=== PATIENT | male | born 1955 | race Caucasian/White ===

== ENCOUNTER 2023-12-20 20:52 | Observation (INO) | payer MEDICARE ==
[~2023-12-20] VITALS: Ht 172.7 cm; Wt 54.4 kg
[2023-12-20 21:52] LABS: BASOPHILS ABSOLUTE AUTO 0.05 K/mm3 (0.00-0.23); BASOPHILS PERCENT AUTO 1 % (0-2); EOSINOPHILS ABSOLUTE AUTO 0.07 K/mm3 (0.00-0.68); EOSINOPHILS PERCENT AUTO 1 % (0-6); Hematocrit 40.1 % (37.0-53.0); Hemoglobin 13.8 g/dL (13.5-17.5); IMMATURE GRAN ABSOLUTE AUTO 0.02 K/mm3 (0.00-0.10); IMMATURE GRAN PERCENT AUTO 0 % (0-1); LYMPHOCYTES ABSOLUTE AUTO 1.13 K/mm3 (0.84-5.20); LYMPHOCYTES PERCENT AUTO 11 % (21-46); MONOCYTES ABSOLUTE AUTO 0.57 K/mm3 (0.16-1.47); MONOCYTES PERCENT AUTO 6 % (4-13); Mean Corpuscular HGB 30.1 pg (26.0-34.0); Mean Corpuscular HGB Conc 34.4 g/dL (31.5-36.5); Mean Corpuscular Volume 88 fL (80-100); Mean Platelet Volume 9.2 fL (9.1-12.4); NEUTROPHILS ABSOLUTE AUTO 8.47 K/mm3 (1.96-9.15); NEUTROPHILS PERCENT AUTO 82 % (41-73); Platelet Count 291 K/mm3 (150-400); RDW Coefficient Variation 13.5 % (11.7-14.2); RDW Standard Deviation 43.5 fL (35.1-46.3); Red Blood Cell Count 4.58 M/mm3 (4.30-5.90); White Blood Cell Count 10.31 K/mm3 (4.00-11.30)
[2023-12-20 22:21] LABS: Albumin, Blood 3.6 g/dL (3.4-5.0); Albumin/Globulin Ratio 0.9 (0.8-1.8); Bilirubin, Total 0.5 mg/dL (0.1-1.0); Bun/Creatinine Ratio 18.4 (12.0-20.0); Calcium, Blood 9.3 mg/dL (8.5-10.1); Creatinine, Blood 0.87 mg/dL (0.60-1.20); Potassium, Blood 3.9 mmol/L (3.5-5.5); Total Protein, Blood 7.6 g/dL (6.4-8.2)
[2023-12-20] MEDS ORDERED: NS 1,000 ML IV SCH (23:15)
[2023-12-20] MEDS ORDERED: Metoclopramide HCl 5MG / ML 2ML Vial IV ONE (23:25)
[2023-12-20] MEDS ORDERED: Morphine Sulfate 4 MG/1 ML Injection IV ONE (23:25)
[2023-12-21] MEDS ORDERED: Ondansetron HCl 2 MG / ML 2ML Vial IV PRN (02:30)
[2023-12-21] MEDS ORDERED: FentaNYL Citrate 50 MCG/ML 2 ML Injection IV PRN (02:30)
[2023-12-21] MEDS ORDERED: Pantoprazole Sodium 40 MG Injection IV SCH (02:40)
[2023-12-21 03:48] VITALS: BP 169/91
[2023-12-21] MEDS ORDERED: NS 1,000 ML IV SCH (04:00)
[2023-12-21 04:54] LABS: BASOPHILS ABSOLUTE AUTO 0.05 K/mm3 (0.00-0.23); BASOPHILS PERCENT AUTO 1 % (0-2); EOSINOPHILS ABSOLUTE AUTO 0.06 K/mm3 (0.00-0.68); EOSINOPHILS PERCENT AUTO 1 % (0-6); Hematocrit 39.8 % (37.0-53.0); Hemoglobin 13.3 g/dL (13.5-17.5); IMMATURE GRAN ABSOLUTE AUTO 0.03 K/mm3 (0.00-0.10); IMMATURE GRAN PERCENT AUTO 0 % (0-1); LYMPHOCYTES ABSOLUTE AUTO 1.49 K/mm3 (0.84-5.20); LYMPHOCYTES PERCENT AUTO 17 % (21-46); MONOCYTES ABSOLUTE AUTO 0.53 K/mm3 (0.16-1.47); MONOCYTES PERCENT AUTO 6 % (4-13); Mean Corpuscular HGB 29.8 pg (26.0-34.0); Mean Corpuscular HGB Conc 33.4 g/dL (31.5-36.5); Mean Corpuscular Volume 89 fL (80-100); Mean Platelet Volume 9.4 fL (9.1-12.4); NEUTROPHILS ABSOLUTE AUTO 6.56 K/mm3 (1.96-9.15); NEUTROPHILS PERCENT AUTO 75 % (41-73); Platelet Count 309 K/mm3 (150-400); RDW Coefficient Variation 13.5 % (11.7-14.2); RDW Standard Deviation 44.3 fL (35.1-46.3); Red Blood Cell Count 4.46 M/mm3 (4.30-5.90); White Blood Cell Count 8.72 K/mm3 (4.00-11.30)
[2023-12-21] MEDS ORDERED: CLOP75 PO (05:03)
[2023-12-21] MEDS ORDERED: AMLO5 PO (05:03)
[2023-12-21] MEDS ORDERED: ATOR40TA PO (05:04)
[2023-12-21] MEDS ORDERED: LOSA50 PO (05:04)
[2023-12-21] MEDS ORDERED: METO25ER PO (05:04)
[2023-12-21 05:37] LABS: Albumin, Blood 3.7 g/dL (3.4-5.0); Albumin/Globulin Ratio 0.9 (0.8-1.8); Bilirubin, Total 0.6 mg/dL (0.1-1.0); Bun/Creatinine Ratio 14.3 (12.0-20.0); Calcium, Blood 9.3 mg/dL (8.5-10.1); Creatinine, Blood 0.77 mg/dL (0.60-1.20); Globulin, Blood 4.1 g/dL (2.2-4.0); Potassium, Blood 4.1 mmol/L (3.5-5.5); Total Protein, Blood 7.8 g/dL (6.4-8.2)
[2023-12-21 07:43] VITALS: BP 168/74
[2023-12-21] MEDS ORDERED: Enoxaparin 40 MG/0.4 ML SYR SC SCH (09:00)
--- NOTE | 2023-12-21 14:54 | NUR ---
SHIFT SUMMARY PT RESTING QUIETLY AT START OF SHIFT. WOKE EASILY FOR CARE. PT BECOMING AGITATED AND CONFUSED, SETTING OFF BED ALARM WANTING TO WALK AROUND. PT LATER USING URINAL WITH ASSIST BY BUSINESS DEVELOPMENT DIRECTOR. DR WALLS HERE TO SEE PT; DIET ADVANCED TO CL AND LATER ADVANCE NEO. PT REQUESTED AND DRINKING JUICE; NOW EATING YOGURT AND TOLERATING WELL. IMAGING HERE TO TAKE PT FOR SCAN. PT VERY AGITATED AND WANTING OOB TO WALK TO BTHRM. PT GIVEN HIS CANE AND SBA TO BTHRM TO VOID. PT NOW SL. DENIES FURTHER NEEDS. REMAINS SOMEWHAT CONFUSED. BED ALARM ON FOR SAFETY. CALL LT IN REACH.
[2023-12-21 16:52] VITALS: BP 190/86
[2023-12-21] MEDS ORDERED: Metoprolol Succinate 25 MG TABCR PO SCH (18:00)
[2023-12-21 20:29] VITALS: BP 161/84
[2023-12-21] MEDS ORDERED: Atorvastatin 40 MG Tab PO SCH (21:00)
[2023-12-21] MEDS ORDERED: Losartan Potassium 50 MG Tab PO SCH (21:00)
[2023-12-21 23:29] VITALS: BP 157/95
[2023-12-22] MEDS ORDERED: HYDROcodone 5-APAP 325 TAB PO PRN (05:25)
--- NOTE | 2023-12-22 05:59 | NUR ---
SHIFT SUMMARY: PATIENT IS A&O TO SELF AND PLACE AT START OF SHIT BUT WOKE CONFUSED. PATIENT WAS DIFFICULT TO REDIRECT BACK TO HIS ROOM. STAFF ATTEMPTED MULTIPLE TIMES TO GET PATIENT INTO THE BATHROOM TO VOID AND CHANGE SOILED BRIEF AND PANTS. THIS WAS FINALLY ACCOMPLISHED. PATIENT THEN REPORTED ABD. PAIN 5/10 BUT WAS REFUSING ANY IV MEDICATION, PAIN MEDS OR SCHEDULED PROTONIX. DR BOWERS WAS NOTIFIED AND ORDERS WERE OBTAINED FOR ORAL PROTONIX AND NORCO. PATIENT DID TAKE THE PROTONIX BUT CONTINUES TO REFUSE ANY PAIN MEDS. BED ALARM IS ON FOR SAFETY.
[2023-12-22] MEDS ORDERED: Pantoprazole Sodium 40 MG Tab PO SCH (06:00)
[2023-12-22 07:54] VITALS: BP 179/92
[2023-12-22] MEDS ORDERED: Clopidogrel Bisulfate 75 MG Tab PO SCH (09:00)
[2023-12-22] MEDS ORDERED: AmLODIPine Besylate 5 MG Tab PO SCH (09:00)
[2023-12-22] MEDS ORDERED: PANT40 PO (11:36)
--- NOTE | 2023-12-22 13:18 | NUR ---
PT AWAKE AT START OF SHIFT, DURING SHIFT REPORT. NO C/O. PT ABLE TO SIT UP TO EOB AND EAT BREAKFAST. DIET ADVANCED AGAIN PER ORDERS, PT TOLERATING WELL. DR WALLS IN TO SEE PT AND DISCUSS PLAN OF CARE. PT ABLE TO D/C TODAY. MEDS FAXED TO [facility], PER PT; REQUEST. PT ALSO REQUESTING [facility] AT D/[facility]. FINANCE ANALYST ABLE TO ARRANGE. D/C INSTUCTIONS REVIEWED WTIH PT; VERBALIZED UNDERSTANDING. IV SITE AND TELE MX D/C'D. PT ASSISTED WITH GATHERING ALL BELONGINGS. PT THEN ASSISTED OUT TO [facility] VIA W/C.
== END 2023-12-22 12:03 | disposition home or self-care (01) ==
LOC: ER 20:52 → MEDS 20:53
PROVIDERS: Student in an Organized Health Care Education/Training Program; ADMIT Internal Medicine
DX: R74.8 Abnormal levels of other serum enzymes (principal); K86.89 Other specified diseases of pancreas; R53.1 Weakness; K21.9 Gastro-esophageal reflux disease without esophagitis; I10 Essential (primary) hypertension; E78.5 Hyperlipidemia, unspecified
CPT/HCPCS: 36415; 74177; 74181; 80053; 82272; 83690; 83880; 85025; 96361; 96374-59; 96375; 97116; 97161; 97165; 97530; 99285-25; A9270; C9113; G0378; J2270; J2765; J7030; Q9967

== ENCOUNTER 2025-03-07 11:56 | Emergency (ER) | payer MEDICARE, OTHER ==
[~2025-03-07] VITALS: Ht 175.3 cm; Wt 65.8 kg
[~2025-03-07 11:56] MED LIST: AMLO5 PO; ATOR40TA PO; B-1100 M1 PO; CLOP75 PO; DOCU100 PO; LOSA50 PO; METO25ER PO; MULVITA PO; PANT40 PO
[2025-03-07 12:39] LABS: BASOPHILS ABSOLUTE AUTO 0.04 K/mm3 (0.00-0.23); BASOPHILS PERCENT AUTO 1 % (0-2); EOSINOPHILS ABSOLUTE AUTO 0.20 K/mm3 (0.00-0.68); EOSINOPHILS PERCENT AUTO 3 % (0-6); Hematocrit 36.4 % (37.0-53.0); Hemoglobin 12.5 g/dL (13.5-17.5); IMMATURE GRAN ABSOLUTE AUTO 0.01 K/mm3 (0.00-0.10); IMMATURE GRAN PERCENT AUTO 0 % (0-1); LYMPHOCYTES ABSOLUTE AUTO 1.23 K/mm3 (0.84-5.20); LYMPHOCYTES PERCENT AUTO 18 % (21-46); MONOCYTES ABSOLUTE AUTO 0.33 K/mm3 (0.16-1.47); MONOCYTES PERCENT AUTO 5 % (4-13); Mean Corpuscular HGB Conc 34.3 g/dL (31.5-36.5); Mean Corpuscular Volume 91 fL (80-100); NEUTROPHILS ABSOLUTE AUTO 5.00 K/mm3 (1.96-9.15); NEUTROPHILS PERCENT AUTO 74 % (41-73); NRBC ABSOLUTE 0.00 K/mm3 (0.00-0.02); NRBC Auto 0.0 /100 WBC (0.0-0.2); Platelet Count 243 K/mm3 (150-400); RDW Coefficient Variation 13.2 % (11.7-14.2); RDW Standard Deviation 43.2 fL (35.1-46.3)
[2025-03-07 13:03] LABS: Alanine Aminotransfer (ALT/SGP 24.0 U/L (12-78); Albumin, Blood 3.6 g/dL (3.4-5.0); Albumin/Globulin Ratio 1.1 (0.8-1.8); Anion Gap 9.0 mmol/L (3-11); Aspartate Aminotrans (AST/SGOT 11.0 U/L (12-37); Bilirubin, Total 0.5 mg/dL (0.1-1.0); Blood Urea Nitrogen 15.0 mg/dL (8-24); CO2, Blood 28.0 mmol/L (21-32); Calcium, Blood 9.5 mg/dL (8.5-10.1); Chloride, Blood 109.0 mmol/L (98-108); Creatinine, Blood 0.97 mg/dL (0.60-1.20); Globulin, Blood 3.2 g/dL (2.2-4.0); Glucose, Blood 121.0 mg/dL (70-99); Potassium, Blood 3.5 mmol/L (3.5-5.5); Sodium, Blood 142.0 mmol/L (136-145); Total Protein, Blood 6.8 g/dL (6.4-8.2)
[2025-03-07] MEDS ORDERED: TRAZ50 PO (16:04)
[2025-03-07] MEDS ORDERED: METF500 (16:04)
[2025-03-07] MEDS ORDERED: OLAN10 PO (16:04)
[2025-03-07] MEDS ORDERED: NS 1,000 ML IV SCH (17:05)
[2025-03-07 19:19] LABS: Source, Urine Voided
[2025-03-07 19:23] LABS: Bilirubin, Urine Neg (Neg); Color, Urine Yellow (P-Yellow); Glucose Qualitative, Urine Neg (Neg); Ketones, Urine Neg (Neg); Leukocyte Esterase, Urine Neg (Neg); Protein, Urine 1+ (Neg); Specific Gravity, Urine 1.025 (1.003-1.022); Urobilinogen, Urine NORM (Normal)
== END 2025-03-07 21:08 | disposition home or self-care (01) ==
LOC: ER 11:56
PROVIDERS: Emergency Medicine
DX: S01.112A Laceration without foreign body of left eyelid and periocular area, initial encounter (principal); I10 Essential (primary) hypertension; E78.5 Hyperlipidemia, unspecified; I69.351 Hemiplegia and hemiparesis following cerebral infarction affecting right dominant side; K21.9 Gastro-esophageal reflux disease without esophagitis; Z79.02 Long term (current) use of antithrombotics/antiplatelets; Z79.899 Other long term (current) drug therapy; W18.30XA Fall on same level, unspecified, initial encounter
CPT/HCPCS: 70450; 72125; 80053; 85025; 93005; 93010; 96360; 99285-25; J7030

== ENCOUNTER 2025-03-13 13:32 | Emergency (ER) | payer MEDICARE, OTHER ==
[~2025-03-13] VITALS: Ht 182.9 cm; Wt 54.5 kg
[~2025-03-13 13:32] MED LIST changes: +METF500; +OLAN10 PO; +TRAZ50 PO
[2025-03-13 14:48] LABS: BASOPHILS ABSOLUTE AUTO 0.04 K/mm3 (0.00-0.23); BASOPHILS PERCENT AUTO 0 % (0-2); EOSINOPHILS ABSOLUTE AUTO 0.23 K/mm3 (0.00-0.68); EOSINOPHILS PERCENT AUTO 2 % (0-6); Hematocrit 37.8 % (37.0-53.0); Hemoglobin 13.1 g/dL (13.5-17.5); IMMATURE GRAN ABSOLUTE AUTO 0.04 K/mm3 (0.00-0.10); IMMATURE GRAN PERCENT AUTO 0 % (0-1); LYMPHOCYTES ABSOLUTE AUTO 1.08 K/mm3 (0.84-5.20); LYMPHOCYTES PERCENT AUTO 8 % (21-46); MONOCYTES ABSOLUTE AUTO 0.69 K/mm3 (0.16-1.47); MONOCYTES PERCENT AUTO 5 % (4-13); Mean Corpuscular HGB Conc 34.7 g/dL (31.5-36.5); Mean Corpuscular Volume 90 fL (80-100); NEUTROPHILS ABSOLUTE AUTO 11.69 K/mm3 (1.96-9.15); NEUTROPHILS PERCENT AUTO 85 % (41-73); NRBC ABSOLUTE 0.00 K/mm3 (0.00-0.02); NRBC Auto 0.0 /100 WBC (0.0-0.2); Platelet Count 240 K/mm3 (150-400); RDW Coefficient Variation 13.4 % (11.7-14.2); RDW Standard Deviation 44.0 fL (35.1-46.3)
[2025-03-13 15:03] LABS: Prothrombin Time Results 10.9 Sec (9.7-11.5)
[2025-03-13 15:50] LABS: Source, Urine Clean Catch
[2025-03-13 15:54] LABS: Bilirubin, Urine Neg (Neg); Color, Urine Yellow (P-Yellow); Glucose Qualitative, Urine Neg (Neg); Ketones, Urine Neg (Neg); Leukocyte Esterase, Urine 2+ (Neg); Protein, Urine 2+ (Neg); Specific Gravity, Urine 1.015 (1.003-1.022); Urobilinogen, Urine NORM (Normal)
[2025-03-13 16:04] LABS: Red Blood Cells, Urine TNTC /hpf (0-2); White Blood Cells, Urine 25-50 /hpf (0-5)
[2025-03-13 16:05] LABS: Magnesium, Blood 2.1 mg/dL (1.6-2.4)
[2025-03-13 16:06] LABS: Alanine Aminotransfer (ALT/SGP 25.0 U/L (12-78); Albumin, Blood 3.8 g/dL (3.4-5.0); Albumin/Globulin Ratio 1.1 (0.8-1.8); Anion Gap 9.0 mmol/L (3-11); Aspartate Aminotrans (AST/SGOT 17.0 U/L (12-37); Bilirubin, Total 0.7 mg/dL (0.1-1.0); Blood Urea Nitrogen 11.0 mg/dL (8-24); CO2, Blood 28.0 mmol/L (21-32); Calcium, Blood 9.4 mg/dL (8.5-10.1); Chloride, Blood 106.0 mmol/L (98-108); Creatinine, Blood 0.67 mg/dL (0.60-1.20); Globulin, Blood 3.6 g/dL (2.2-4.0); Glucose, Blood 116.0 mg/dL (70-99); Potassium, Blood 3.6 mmol/L (3.5-5.5); Sodium, Blood 139.0 mmol/L (136-145); Total Protein, Blood 7.4 g/dL (6.4-8.2)
[2025-03-13] MEDS ORDERED: CEFP200 PO (16:48)
== END 2025-03-13 17:54 | disposition home or self-care (01) ==
LOC: ER 13:32
PROVIDERS: Emergency Medicine
DX: N39.0 Urinary tract infection, site not specified (principal); I10 Essential (primary) hypertension; K21.9 Gastro-esophageal reflux disease without esophagitis; E78.5 Hyperlipidemia, unspecified; Z79.84 Long term (current) use of oral hypoglycemic drugs; Z79.899 Other long term (current) drug therapy
CPT/HCPCS: 74177; 80053; 81001; 83690; 83735; 85025; 85610; 85730; 99284-25; A9270; Q9967

== ENCOUNTER 2025-03-23 12:40 | Inpatient (IN) | payer OTHER ==
[~2025-03-23] VITALS: Ht 165.1 cm; Wt 65.8 kg
[~2025-03-23 12:40] MED LIST changes: +CEFP200 PO
[2025-03-23] MEDS ORDERED: FentaNYL Citrate 50 MCG/ML 2 ML Injection IV PRN (13:05)
[2025-03-23 13:37] LABS: BASOPHILS ABSOLUTE AUTO 0.05 K/mm3 (0.00-0.23); BASOPHILS PERCENT AUTO 0 % (0-2); EOSINOPHILS ABSOLUTE AUTO 0.04 K/mm3 (0.00-0.68); EOSINOPHILS PERCENT AUTO 0 % (0-6); Hematocrit 37.9 % (37.0-53.0); Hemoglobin 12.8 g/dL (13.5-17.5); IMMATURE GRAN ABSOLUTE AUTO 0.09 K/mm3 (0.00-0.10); IMMATURE GRAN PERCENT AUTO 1 % (0-1); LYMPHOCYTES ABSOLUTE AUTO 0.75 K/mm3 (0.84-5.20); LYMPHOCYTES PERCENT AUTO 5 % (21-46); MONOCYTES ABSOLUTE AUTO 0.71 K/mm3 (0.16-1.47); MONOCYTES PERCENT AUTO 4 % (4-13); Mean Corpuscular HGB Conc 33.8 g/dL (31.5-36.5); Mean Corpuscular Volume 92 fL (80-100); NEUTROPHILS ABSOLUTE AUTO 14.81 K/mm3 (1.96-9.15); NEUTROPHILS PERCENT AUTO 90 % (41-73); NRBC ABSOLUTE 0.00 K/mm3 (0.00-0.02); NRBC Auto 0.0 /100 WBC (0.0-0.2); Platelet Count 289 K/mm3 (150-400); RDW Coefficient Variation 13.3 % (11.7-14.2); RDW Standard Deviation 44.9 fL (35.1-46.3)
[2025-03-23 13:52] LABS: Prothrombin Time Results 11.5 Sec (9.7-11.5)
[2025-03-23 14:03] LABS: Alanine Aminotransfer (ALT/SGP 45.0 U/L (12-78); Albumin, Blood 3.8 g/dL (3.4-5.0); Albumin/Globulin Ratio 1.1 (0.8-1.8); Anion Gap 8.0 mmol/L (3-11); Aspartate Aminotrans (AST/SGOT 29.0 U/L (12-37); Bilirubin, Total 0.5 mg/dL (0.1-1.0); Blood Urea Nitrogen 14.0 mg/dL (8-24); CO2, Blood 27.0 mmol/L (21-32); Calcium, Blood 9.2 mg/dL (8.5-10.1); Chloride, Blood 108.0 mmol/L (98-108); Creatinine, Blood 0.67 mg/dL (0.60-1.20); Globulin, Blood 3.5 g/dL (2.2-4.0); Glucose, Blood 152.0 mg/dL (70-99); Potassium, Blood 3.8 mmol/L (3.5-5.5); Sodium, Blood 139.0 mmol/L (136-145); Total Protein, Blood 7.3 g/dL (6.4-8.2)
[2025-03-23] MEDS ORDERED: HYDROmorphone HCl/Pf 1MG SYR IV PRN ×2 (14:40→16:00)
[2025-03-23 15:56] VITALS: BP 154/75
--- NOTE | 2025-03-23 16:07 | NUR ---
PT TO ROOM 214 FROM ED. GUARDING L LEG/HIP. PT NON VERBAL. LIVES IN [facility]. FISSURE THAT APPEARS TO BE HEALING NOTED IN GLUTEAL CLEFT. PT PLACED ON Q2 TURN SCHEDULE. WILL CONTINUE TO MONITOR.
--- NOTE | 2025-03-23 17:42 | NUR ---
"Spiritual care Visit | Pt. Request Pt. is awake in bed when he welcomes my visit. Pt. is pleasant, but is a man of few words. Attempted to facilitate a life review. Pt. was very limited in his response but did verbally confirm that he was in the hospital because of a broken hip. Pts. ASPH[employer] ROLLER PERSON brought pt. his dinner, and the Pt. became focused upon his food. Pt. welcomed prayer. Prayed for Pt. Afterward Pt. nonverbally (with a nod) agreed to have this airport shuttle driver return tomorrow."
[2025-03-23 19:53] VITALS: BP 124/64
[2025-03-24] VITALS (16 sets, daily range): BP systolic 121–159; BP diastolic 56–107
[2025-03-24 03:54] LABS: BASOPHILS ABSOLUTE AUTO 0.03 K/mm3 (0.00-0.23); BASOPHILS PERCENT AUTO 0 % (0-2); EOSINOPHILS ABSOLUTE AUTO 0.23 K/mm3 (0.00-0.68); EOSINOPHILS PERCENT AUTO 2 % (0-6); Hematocrit 33.6 % (37.0-53.0); Hemoglobin 11.2 g/dL (13.5-17.5); IMMATURE GRAN ABSOLUTE AUTO 0.03 K/mm3 (0.00-0.10); IMMATURE GRAN PERCENT AUTO 0 % (0-1); LYMPHOCYTES ABSOLUTE AUTO 1.52 K/mm3 (0.84-5.20); LYMPHOCYTES PERCENT AUTO 16 % (21-46); MONOCYTES ABSOLUTE AUTO 0.53 K/mm3 (0.16-1.47); MONOCYTES PERCENT AUTO 6 % (4-13); Mean Corpuscular HGB Conc 33.3 g/dL (31.5-36.5); Mean Corpuscular Volume 93 fL (80-100); NEUTROPHILS ABSOLUTE AUTO 7.24 K/mm3 (1.96-9.15); NEUTROPHILS PERCENT AUTO 76 % (41-73); NRBC ABSOLUTE 0.00 K/mm3 (0.00-0.02); NRBC Auto 0.0 /100 WBC (0.0-0.2); Platelet Count 253 K/mm3 (150-400); RDW Coefficient Variation 13.5 % (11.7-14.2); RDW Standard Deviation 45.6 fL (35.1-46.3)
[2025-03-24 04:18] LABS: Alanine Aminotransfer (ALT/SGP 33.0 U/L (12-78); Albumin, Blood 3.2 g/dL (3.4-5.0); Albumin/Globulin Ratio 1.0 (0.8-1.8); Anion Gap 6.0 mmol/L (3-11); Aspartate Aminotrans (AST/SGOT 15.0 U/L (12-37); Bilirubin, Total 0.6 mg/dL (0.1-1.0); Blood Urea Nitrogen 16.0 mg/dL (8-24); CO2, Blood 30.0 mmol/L (21-32); Calcium, Blood 9.0 mg/dL (8.5-10.1); Chloride, Blood 108.0 mmol/L (98-108); Creatinine, Blood 0.72 mg/dL (0.60-1.20); Globulin, Blood 3.3 g/dL (2.2-4.0); Glucose, Blood 123.0 mg/dL (70-99); Potassium, Blood 3.8 mmol/L (3.5-5.5); Sodium, Blood 140.0 mmol/L (136-145); Total Protein, Blood 6.5 g/dL (6.4-8.2)
--- NOTE | 2025-03-24 05:29 | NUR ---
RAG WILLOW OPERATOR SUMMARY NO ACUTE CHANGES THIS SHIFT. PT AAOX2-3, VERY SOFT SPOKEN AND MINIMALLY VERBAL BUT DOES ANSWER QUESTIONS APPROPRIATELY FOR THE MOST PART. NPO SINCE MIDNIGHT FOR L HIP SURGERY LATER TODAY. PAIN HAS BEEN CONTROLLED WITH OXYCODONE. PT HAS BEEN ABLE TO SLEEP OFF AND ON THROUGH THE NIGHT. PT INCONTINENT SO PUREWICK EXTERNAL CATHETER PLACED. PRE OP [place] COMPLETED. VSS, WCTM.
[2025-03-24] MEDS ORDERED: FentaNYL Citrate 50 MCG/ML 2 ML Injection ONE (13:15)
[2025-03-24] MEDS ORDERED: Rocuronium Bromide 10 MG/ML 5ML Injection IV ONE (13:15)
[2025-03-24] MEDS ORDERED: CeFAZolin Sodium 2,000 MG in NS 100 ML IV SCH ×2 (14:00→23:00)
[2025-03-24] MEDS ORDERED: CeFAZolin Sodium 2,000 MG VIAL ONE (14:01)
[2025-03-24] MEDS ORDERED: Tranexamic Acid 100 ML IV ONE ×3 (14:40→17:55)
[2025-03-24] MEDS ORDERED: HYDROmorphone HCl/Pf 1MG SYR IV PRN ×2 (15:05→15:10)
[2025-03-24] MEDS ORDERED: Metoclopramide HCl 5MG / ML 2ML Vial IV PRN (15:05)
[2025-03-24] MEDS ORDERED: FentaNYL Citrate 50 MCG/ML 2 ML Injection IV PRN ×2 (15:05)
[2025-03-24] MEDS ORDERED: Albuterol 2.5 MG/3 ML VIAL INH PRN (15:05)
[2025-03-24] MEDS ORDERED: Bupivacaine 0.5% W/EPI 1:200000 SDV 30 ML Vial ONE (15:33)
[2025-03-24] MEDS ORDERED: Sugammadex Sodium 200 MG/2ML SDV (100 MG/ML) ONE (15:51)
[2025-03-24] MEDS ORDERED: NS 250 ML IV PRN (18:05)
--- NOTE | 2025-03-24 18:30 | NUR ---
SHIFT SUMMARY PATIENT ALERT AND INTERACTIVE BUT FLAT AND SOFT SPOKEN PRIOR TO SURGERY. PATIENT MEDICATED FOR PAIN PER MAR. PATIENT TAKEN DOWN TO DAY SURGERY BY BED ABOUT 1330. PATIENT RETURNED TO ROOM POST OP AWAKE AND IN PAIN. PATIENT MEDICATED WITH DILAUDID FOR PAIN CONTROL WITH SOME RELIEF. PATIENT MORE INTERACTIVE WNEN PAIN IMPROVED. PATIENT CURRENTLY ON 4L NC POST OP. PATINET ON RA PRIOR TO SURGERY. SURGICAL INCISION COVERED WITH DRESSING. NO DRAINAGE NOTED AT THIS TIME. PATIENT CONTINUES TO HAVE PAIN ESPECIALLY WITH TURNING.
[2025-03-25 04:41] LABS: BASOPHILS ABSOLUTE AUTO 0.03 K/mm3 (0.00-0.23); BASOPHILS PERCENT AUTO 0 % (0-2); EOSINOPHILS ABSOLUTE AUTO 0.01 K/mm3 (0.00-0.68); EOSINOPHILS PERCENT AUTO 0 % (0-6); Hematocrit 30.7 % (37.0-53.0); Hemoglobin 10.4 g/dL (13.5-17.5); IMMATURE GRAN ABSOLUTE AUTO 0.03 K/mm3 (0.00-0.10); IMMATURE GRAN PERCENT AUTO 0 % (0-1); LYMPHOCYTES ABSOLUTE AUTO 0.59 K/mm3 (0.84-5.20); LYMPHOCYTES PERCENT AUTO 5 % (21-46); MONOCYTES ABSOLUTE AUTO 0.58 K/mm3 (0.16-1.47); MONOCYTES PERCENT AUTO 5 % (4-13); Mean Corpuscular HGB Conc 33.9 g/dL (31.5-36.5); Mean Corpuscular Volume 92 fL (80-100); NEUTROPHILS ABSOLUTE AUTO 11.26 K/mm3 (1.96-9.15); NEUTROPHILS PERCENT AUTO 90 % (41-73); NRBC ABSOLUTE 0.00 K/mm3 (0.00-0.02); NRBC Auto 0.0 /100 WBC (0.0-0.2); Platelet Count 254 K/mm3 (150-400); RDW Coefficient Variation 13.4 % (11.7-14.2); RDW Standard Deviation 44.9 fL (35.1-46.3)
[2025-03-25 04:49] VITALS: BP 149/76
[2025-03-25 05:04] LABS: Alanine Aminotransfer (ALT/SGP 27.0 U/L (12-78); Albumin, Blood 2.9 g/dL (3.4-5.0); Albumin/Globulin Ratio 0.9 (0.8-1.8); Anion Gap 7.0 mmol/L (3-11); Aspartate Aminotrans (AST/SGOT 16.0 U/L (12-37); Bilirubin, Total 0.4 mg/dL (0.1-1.0); Blood Urea Nitrogen 18.0 mg/dL (8-24); CO2, Blood 29.0 mmol/L (21-32); Calcium, Blood 9.0 mg/dL (8.5-10.1); Chloride, Blood 106.0 mmol/L (98-108); Creatinine, Blood 0.84 mg/dL (0.60-1.20); Globulin, Blood 3.1 g/dL (2.2-4.0); Glucose, Blood 158.0 mg/dL (70-99); Potassium, Blood 4.6 mmol/L (3.5-5.5); Sodium, Blood 137.0 mmol/L (136-145); Total Protein, Blood 6.0 g/dL (6.4-8.2)
--- NOTE | 2025-03-25 06:21 | NUR ---
SHIFT SUMMARY SOFT SPOKEN WITH FEW WORDS, BUT A&O. MEDICATED FOR PAIN WITH DILAUDID AND OXYCODONE PER EMAR. DRESSING TO LEFT HIP C/D/I. TURNED AND REPOSITIONED DURING THE NIGHT. PT INCONT OF URINE- ATTENDS CHANGED PRN. PT SLEPT INTERMITTENTLY DURING THE NIGHT.
[2025-03-25 07:09] VITALS: BP 118/66
[2025-03-25 14:50] VITALS: BP 123/59
--- NOTE | 2025-03-25 17:19 | NUR ---
SHIFT SUMMARY: PATIENT MEDICATED FOR L HIP PAIN PER EMAR c GOOD EFFECT. PATIENT DRESSING TO L HIP C/D/I. ICE PACK IN PLACE TO L HIP ON/OFF T/O SHIFT. PATIENT WORK c PT IN BED THIS AFTERNOON, RECOMMENDING SNF. PATIENT HAS FAIR APPETITE, INCONT OF BLADDER, ATTENDS IN PLACED AND CHANGED PRN. Q2 TURN. VITAL SIGNS REVIEWED. RA, ON LAUNDRY OPERATOR WASH ROOM. PATIENT A/OX3, FLAT AFFECT, CALLS APPROPRIATELY AND MAKE NEEDS KNOWN. BED IN LOWEST POSITION. CALL LIGHT IN REACH.
[2025-03-25 19:05] VITALS: BP 115/63
[2025-03-25 20:02] VITALS: BP 123/60
[2025-03-26 00:17] VITALS: BP 123/64
[2025-03-26 04:28] LABS: Hematocrit 29.7 % (37.0-53.0); Hemoglobin 10.0 g/dL (13.5-17.5); Mean Corpuscular HGB Conc 33.7 g/dL (31.5-36.5); Mean Corpuscular Volume 93 fL (80-100); NRBC ABSOLUTE 0.00 K/mm3 (0.00-0.02); NRBC Auto 0.0 /100 WBC (0.0-0.2); Platelet Count 243 K/mm3 (150-400); RDW Coefficient Variation 13.7 % (11.7-14.2); RDW Standard Deviation 46.5 fL (35.1-46.3)
[2025-03-26 04:36] VITALS: BP 146/71
--- NOTE | 2025-03-26 05:05 | NUR ---
NOC SUMMARY- PT PAIN MANAGED WELL. PT HAS HAD INCONTINENT VOIDS. PT PULLED OF PUREWICK DEVICE OFF. PT ABLE TO MAKE NEEDS KNOWN. PT REPOSITIONED TOLERATED. PT DRESSING IS C/D/I. PT TOLERATING PO INTAKE. CALL LIGHT IN REACH.
[2025-03-26 07:16] VITALS: BP 137/71
[2025-03-26] MEDS ORDERED: Ketorolac Tromethamine 15mg Vial IV PRN (14:20)
[2025-03-26 14:23] VITALS: BP 132/71
[2025-03-26 20:12] VITALS: BP 117/63
[2025-03-27 04:31] LABS: BASOPHILS ABSOLUTE AUTO 0.05 K/mm3 (0.00-0.23); BASOPHILS PERCENT AUTO 1 % (0-2); EOSINOPHILS ABSOLUTE AUTO 0.37 K/mm3 (0.00-0.68); EOSINOPHILS PERCENT AUTO 4 % (0-6); Hematocrit 28.9 % (37.0-53.0); Hemoglobin 9.5 g/dL (13.5-17.5); IMMATURE GRAN ABSOLUTE AUTO 0.02 K/mm3 (0.00-0.10); IMMATURE GRAN PERCENT AUTO 0 % (0-1); LYMPHOCYTES ABSOLUTE AUTO 1.53 K/mm3 (0.84-5.20); LYMPHOCYTES PERCENT AUTO 18 % (21-46); MONOCYTES ABSOLUTE AUTO 0.61 K/mm3 (0.16-1.47); MONOCYTES PERCENT AUTO 7 % (4-13); Mean Corpuscular HGB Conc 32.9 g/dL (31.5-36.5); Mean Corpuscular Volume 93 fL (80-100); NEUTROPHILS ABSOLUTE AUTO 6.00 K/mm3 (1.96-9.15); NEUTROPHILS PERCENT AUTO 70 % (41-73); NRBC ABSOLUTE 0.00 K/mm3 (0.00-0.02); NRBC Auto 0.0 /100 WBC (0.0-0.2); Platelet Count 250 K/mm3 (150-400); RDW Coefficient Variation 13.6 % (11.7-14.2); RDW Standard Deviation 46.2 fL (35.1-46.3)
[2025-03-27 04:53] VITALS: BP 128/65
--- NOTE | 2025-03-27 06:57 | NUR ---
SHIFT SUMMARY POD 3 L HIP REPAIR. AQUACEL TO LEFT HIP C/D/I. PT C/O INCREASED PAIN THIS SHIFT. PT MEDICATED PER EMAR WITH PT REPORTING DECREASE IN PAIN. PT INCONTINENT OF URINE AND ATTENDS ARE IN PLACE. PT ORIENTED TO PERSON, PLACE, AND SITUATION. PT INTERMITTENTLY CONFUSED THIS SHIFT BUT EASILY REORIENTED. CONTINUOUS PULSE OX IN PLACE SPO2 95% ON RA. PT RESTING IN BED, RESPIRATIONS EVEN AND UNLABORED. CALL LIGHT WITHIN REACH.
[2025-03-27 06:59] VITALS: BP 117/64
--- NOTE | 2025-03-27 16:51 | NUR ---
SHIFT SUMMARY POD 4 L HIP REAPIR. A&O x4, VSS. CONTINOUS PULSE OX IN PLACE w/SATS >94%. MINIMAL PAIN TODAY - CONTROLLED WELL PER EMAR. EPISODES OF INCONTINENCE. PT INTERMITTENTLY CONFUSED & NONVERBAL, REINFORNED EDUCATION REGARDING CALL LIGHT USE. REORIENTS EASILY. CURRENTLY RESTING IN BED w/CALL LIGHT WITHIN REACH.
[2025-03-27 21:09] VITALS: BP 151/81
[2025-03-28 04:11] VITALS: BP 133/64
[2025-03-28 04:44] LABS: Hematocrit 28.2 % (37.0-53.0); Hemoglobin 9.5 g/dL (13.5-17.5); Mean Corpuscular HGB Conc 33.7 g/dL (31.5-36.5); Mean Corpuscular Volume 92 fL (80-100); NRBC ABSOLUTE 0.00 K/mm3 (0.00-0.02); NRBC Auto 0.0 /100 WBC (0.0-0.2); Platelet Count 264 K/mm3 (150-400); RDW Coefficient Variation 13.4 % (11.7-14.2); RDW Standard Deviation 44.6 fL (35.1-46.3)
--- NOTE | 2025-03-28 04:52 | NUR ---
SHIFT SUMMARY POD 4 L HIP VARINDER ARHTROPLASTY. AQUACEL TO L HIP C/D/I. PAIN MANAGED WELL PER EMAR. VSS. CONTINUOUS PULSE OX IN PLACE, SPO2 96% ON RA. PT ORIENTED TO PERSON, PLACE, AND SITUATION. PT INTERMITTENTLY CONFUSED THROUGHOUT SHIFT. PT EASILY REORIENTED. BED ALARM ON. PT INCONTINENT OF URINE AND ATTENDS IN PLACE. PT RESTING IN BED, RESPIRATIONS EVEN AND UNLABORED. CALL LIGHT WITHIN REACH.
[2025-03-28 07:28] VITALS: BP 134/64
--- NOTE | 2025-03-28 11:57 | NUR ---
DISHCARGE SUMMARY A&O x3-4, VSS. ON CONTINOUS PULSE OX - SATS >93%. FORGETFUL AT TIMES, BUT EASILY REDIRECTABLE. POD 3 L HIP NAILING. L HIP w/AQUACEL DRESSING, PER NIGHT RN - CHANGED LAST NIGHT, C/D/I. WORKED w/THERAPY - AMBULATED FROM BED TO CHAIR w/WALKER. EPISODES OF INCONTINENCE - ATTENDS IN PLACE. REPORT CALLED TO [facility] [place]. FAMILY CONTACT NOTIFIED OF TRANSFER. ESCORTED OUT VIA TRANSPORT TEAM.
== END 2025-03-28 11:57 | DRG 522 ==
LOC: ER 12:40 → SURS 12:41
PROVIDERS: Emergency Medicine; Orthopaedic Surgery Sports Medicine; ADMIT Family Medicine
PROC: 3E03329 Introduction of Other Anti-infective into Peripheral Vein, Percutaneous Approach (ICD-10-PCS; 2025-03-24)
PROC: 0SRS0J9 Replacement of Left Hip Joint, Femoral Surface with Synthetic Substitute, Cemented, Open Approach (ICD-10-PCS; principal; 2025-03-24 13:00)
DX: S72.012A Unspecified intracapsular fracture of left femur, initial encounter for closed fracture (principal); I69.851 Hemiplegia and hemiparesis following other cerebrovascular disease affecting right dominant side; N40.0 Benign prostatic hyperplasia without lower urinary tract symptoms; K21.9 Gastro-esophageal reflux disease without esophagitis; E78.5 Hyperlipidemia, unspecified; D72.829 Elevated white blood cell count, unspecified; D64.9 Anemia, unspecified; I10 Essential (primary) hypertension; Z79.84 Long term (current) use of oral hypoglycemic drugs; Z87.19 Personal history of other diseases of the digestive system; W18.39XA Other fall on same level, initial encounter
CPT/HCPCS: 36415; 51702; 72192; 73502; 80053; 85025; 85027; 85610; 86850; 86900; 86901; 93005; 93010; 94760; 96374; 96375; 97110; 97140; 97161; 97530; 99285-25; A9270; C1713; C1776; G0378; J0690; J1171; J1885; J2704; J3010; J7050